=== PATIENT | male | born 1940 | race Caucasian/White ===

== ENCOUNTER 2019-10-29 06:44 | Day surgery (SDC) | payer OTHER ==
[2019-10-28 13:39] VITALS: BMI 30.4
[2019-10-29] MEDS ORDERED: LIDOCAINE HCL 1%, 10 MG/ML (20ML VIAL) ONE (08:10)
--- NOTE | 2019-10-29 08:45 | HP ---
Satellite H - Chief Complaint Chief Complaint: left hand pain - Past Medical History Allergies/Adverse Reactions: Allergies Allergy/AdvReac Type Severity Reaction Status Date / Time crab Allergy Severe Rash Verified 10/29/19 07:42 No Known Drug Allergies Allergy Verified 10/29/19 07:42 - Current Medications Current Medications: Home Medications Medication Instructions Recorded Aspirin [ASA -] 81 mg PO DAILY 04/29/18 Amlodipine Besylate 10 mg PO DAILY 04/30/18 Atorvastatin Ca [Lipitor] 10 mg PO HS 04/30/18 Diclofenac Potassium 50 mg PO DAILY 10/29/19 Hydrocodone/Acetaminophen 1 each PO Q6H #15 tablet MDD 4 10/29/19 [Hydrocodone-Acetamin 5-325 mg] Satellite Physical Exam - Physical Examination Vital Signs: Vital Signs Period Temp Pulse Resp BP Sys/Diego Pulse Ox Last 24 Hr 98.4 F-98.4 F 67-67 20-20 154-154/71-71 96 General Appearance: Well Nourished, Well Developed, Alert & Oriented x3 ENT: Clear Lung: Normal air movement Extremities: Other (left hand- + tinels, + phalens, emg + cts) Neurological: Intact, Alert, Oriented Satellite Impression/Plan - Impression/Plan Impression: left cts Operative Procedure: left ctr Date to be Performed: 10/29/19
[2019-10-29] MEDS ORDERED: SUCCINYLCHOLINE CHLORIDE 200 MG/10 ML SYRINGE ONE (08:50)
[2019-10-29] MEDS ORDERED: PROPOFOL 20 ML ONE ×3 (08:50→10:31)
[2019-10-29] MEDS ORDERED: MIDAZOLAM HCL 2 MG/2 ML SINGLE DOSE VIAL ONE (08:51)
[2019-10-29] MEDS ORDERED: ceFAZolin SODIUM 1 GM VIAL ONE (09:15)
[2019-10-29] MEDS ORDERED: BUPIVACAINE HCL/PF 0.5% (5 MG/ML) 30 ML VIAL IJ ONE (09:39)
[2019-10-29] MEDS ORDERED: LIDOCAINE HCL 1%, 10 MG/ML (20ML VIAL) NR ONE (09:39)
--- NOTE | 2019-10-29 09:53 | OP ---
Operative Note - Note: Operative Date: 10/29/19 Pre-Operative Diagnosis: left CTS, tenosynovitis Operation: left CTR, tenosynovectomy Post-Operative Diagnosis: Same as Pre-op Surgeon: Lio Davis Anesthesiologist/MANAGER AGRICULTURAL: Virginie Moreland Anesthesia: Local, MAC Specimens Removed: tenosynovium Estimated Blood Loss (mls): 0 Drains, Volume Out (mls): 0 Blood Volume Replaced (mls): 0 Fluid Volume Replaced (mls): 500 Operative Report Dictated: Yes
--- NOTE | 2019-10-29 10:13 | SPEC ---
DATE OF OPERATION: DATE OF DICTATION: 10/29/2019 PREOPERATIVE DIAGNOSIS: Left carpal tunnel syndrome. POSTOPERATIVE DIAGNOSIS: Left carpal tunnel syndrome. OPERATION: Left carpal tunnel release and tenosynovectomy. SURGEON: Lio Davis M.D. ASSISTANTS: None. ANESTHESIA: MAC, local injection with 16 mL of 0.5% Marcaine and 1% Lidocaine mix. ANESTHESIOLOGIST: , COLOR COATER DRAINS: None. COMPLICATIONS: None. SPECIMENS: Tenosynovium, left wrist. BLOOD LOSS: None. BLOOD GIVEN: None. FLUID REPLACEMENT: 500 mL. INDICATIONS: This patient is a 79-year-old male with preoperative diagnosis of severe recurrent left carpal tunnel syndrome and tenosynovitis. After understanding the potential risks, complications, alternatives, and benefits of surgery versus nonsurgical treatment, the patient elected to undergo this procedure. DESCRIPTION OF PROCEDURE: The patient was brought to the operating room, peripheral IV placed and intravenous sedation was given. Two g of intravenous Ancef were given. He understands he may not get complete relief of his symptoms. MAC anesthesia was induced. A tourniquet was applied to the left upper arm and the left The entire case was done under 3.8 loupe magnification. A marking pen was utilized to ernie out a longitudinal incision in an already existing skin crease. Twenty mL of 0.5% Marcaine mixed with 1% Lidocaine was injected in and around the surgical incision. The left upper extremity was elevated, exsanguinated with an Esmarch bandage and the tourniquet inflated to 250 mmHg. A No. 15 scalpel blade was utilized to cut down through the skin. Subcutaneous hemostasis was achieved with the bipolar cautery. Dissection was done through the superficial palmar fascia. Self-retaining retractors were placed into the wound. Under direct visualization, the transverse carpal ligament was transected with a No. 15 scalpel blade, exposing the median nerve and the contents of the carpal tunnel. The distal and proximal extents of the release were completed with a Littler scissor and checked with irrigation and my small finger. They were seen to be complete. Limited dissection was done on the radial side of the median nerve and more extensive dissection was done on the ulnar side of the median nerve. The patients nerve was seen to be quite compressed by epineurium and therefore a limited epineurotomy was performed. A Ragnell retractor was used to gently retract the median nerve in a radial direction. The patient had a lot of tenosynovitis and therefore a tenosynovectomy was performed off all 9 flexor tendons. This was passed off the field as tenosynovium left wrist. The floor of the carpal tunnel was checked. There were no abnormal masses or ganglion cysts. The area was copiously irrigated and washed out and closure begun. Undyed 4-0 Vicryl was used to close the deep dermal layer. Final skin reapproximation was done with horizontal mattress 4-0 nylon sutures. The area was then washed and dried, covered with Xeroform, 4x4s, fluffs between the fingers, Webril and a 4-inch plaster roll was utilized to make a volar splint, which was then wrapped with Leonie and Coban. The tourniquet was taken down after a total tourniquet time of 22 minutes. There were no complications during the case. The patient tolerated the procedure well and was brought to the ambulatory recovery room in stable condition. Amos [id number]
[2019-10-29 10:20] VITALS: TEMP 98.6
[2019-10-29 10:48] VITALS: BP 130/70; PULSE 70
--- NOTE | 2019-10-30 16:04 | PATH ---
Surgical Pathology Report Patient Name: KENTON ALAS PE [facility]. Rec. #: [id number] /Age/Gender: 1940 (Age: 79) / M Account: [id number] Location: [facility] SURGICAL Taken: 10/29/2019 Received: 10/29/2019 Reported: 10/30/2019 Physicians: Lio Davis M.D. Specimen(s) Received TENOSYNOVIUM Clinical History Left carpal tunnel Final Diagnosis TENOSYNOVIUM, LEFT, CARPAL TUNNEL RELEASE: BENIGN DENSE FIBROCONNECTIVE TISSUE AND SCANT FIBROADIPOSE TISSUE. Electronically Signed Milagro De Luna M.D. Gross Description Received in formalin labeled "left tenosynovium," is a 2.3 x 1.0 x 0.3 cm aggregate of kemp-yellow portions of soft tissue, consistent with tenosynovium. The specimen is submitted in toto in one cassette. 10/29/2019 [facility]/2019
== END 2019-10-29 10:49 | disposition home or self-care (01) ==
LOC: JASU-SURG 06:44
PROVIDERS: ATTEND Orthopaedic Surgery
PROC: 01N50ZZ Release Median Nerve, Open Approach (ICD-10-PCS; principal; 2019-10-29 09:00)
DX: G56.02 Carpal tunnel syndrome, left upper limb (principal)
CPT/HCPCS: 88304-TC